=== PATIENT | male | born 1975 | race African-American/Black ===

== ENCOUNTER 2025-04-10 08:20 | Emergency (ER) | payer SELFPAY ==
[~2025-04-10] VITALS: Ht 167.6 cm; Wt 78.0 kg
[2025-04-10 08:28] VITALS: BP 118/60; TEMP 36.7; O2SAT 100
[2025-04-10 08:31] VITALS: PULSE 74; RESP 18; O2SAT 96
[2025-04-10] MEDS ORDERED: AMOX1TAB16 MT (08:46)
[2025-04-10] MEDS ORDERED: NAPR-681 MT (08:46)
== END 2025-04-10 08:53 | disposition home or self-care (01) ==
LOC: ER 08:20
DX: K08.89 Other specified disorders of teeth and supporting structures (principal)
CPT/HCPCS: 99283